=== PATIENT | male | born 1940 | race Caucasian/White ===

== ENCOUNTER 2019-06-19 20:28 | Emergency (ER) | payer MEDICARE, BC ==
[~2019-06-19] VITALS: Ht 180.3 cm; Wt 79.4 kg
[2019-06-19 20:37] VITALS: Ht 180.3 cm; Wt 79.4 kg
[2019-06-19] MEDS ORDERED: EYE DROPS (20:38)
[2019-06-19] MEDS ORDERED: NEXIUM20 MG (20:38)
[2019-06-19] MEDS ORDERED: MUCINEX600 MG (20:38)
[2019-06-19] MEDS ORDERED: CRESTOR10 MG (20:38)
[2019-06-19] MEDS ORDERED: CORTISPORIN OTI10 M1 EACH EAR (21:08)
[2019-06-19 21:43] VITALS: BP 125/79
== END 2019-06-19 21:43 | disposition home or self-care (01) ==
LOC: D.ER 20:28
DX: T16.2XXA Foreign body in left ear, initial encounter (principal)